=== PATIENT | female | born 1985 | race Caucasian/White ===

== ENCOUNTER → 2019-10-04 16:12 | Outpatient (BNVA) | payer OTHER, SELFPAY | PROVIDERS: Family Provider Nurse Practitioner Family; PCP Family Medicine; Visit Provider Obstetrics & Gynecology | DX: E28.2 Polycystic ovarian syndrome (principal) | CPT/HCPCS: 36415; 82947; 83036; 84146; 84443; 84703; 85027 ==

== ENCOUNTER → 2019-10-13 10:12 | Outpatient (BNVA) | payer OTHER, SELFPAY | PROVIDERS: Family Provider Family Medicine; PCP Family Medicine; Visit Provider Obstetrics & Gynecology | DX: R73.01 Impaired fasting glucose (principal) | CPT/HCPCS: 82951; 88305 ==

== ENCOUNTER → 2019-12-13 08:26 | Outpatient (BNVA) | payer OTHER, SELFPAY | PROVIDERS: Family Provider Family Medicine; PCP Nurse Practitioner; Referring Provider Nurse Practitioner; Visit Provider Nurse Practitioner | DX: R05 Cough (principal); J20.8 Acute bronchitis due to other specified organisms; B96.89 Other specified bacterial agents as the cause of diseases classified elsewhere | CPT/HCPCS: 87400 ==

== ENCOUNTER → 2020-02-09 09:40 | Outpatient (BNVA) | payer OTHER, SELFPAY | PROVIDERS: Family Provider Family Medicine; PCP Nurse Practitioner; Visit Provider Obstetrics & Gynecology | DX: E28.2 Polycystic ovarian syndrome (principal) | CPT/HCPCS: 84144 ==

== ENCOUNTER → 2020-03-25 11:50 | Outpatient (BNVA) | payer OTHER, SELFPAY | PROVIDERS: Family Provider Family Medicine; PCP Nurse Practitioner; Visit Provider Obstetrics & Gynecology | DX: E28.2 Polycystic ovarian syndrome (principal) | CPT/HCPCS: 84144 ==

== ENCOUNTER → 2021-02-20 10:50 | Outpatient (BNVA) | payer SELFPAY | PROVIDERS: Family Provider Family Medicine; PCP Family Medicine; Visit Provider Family Medicine | DX: E11.9 Type 2 diabetes mellitus without complications (principal); E28.2 Polycystic ovarian syndrome; E66.9 Obesity, unspecified | CPT/HCPCS: 80053; 83036; 84443 ==

== ENCOUNTER → 2022-07-22 10:07 | Outpatient (BNVA) | payer BC, MEDICAID, SELFPAY | PROVIDERS: Family Provider Family Medicine; PCP Family Medicine; Visit Provider Family Medicine | DX: O98.519 Other viral diseases complicating pregnancy, unspecified trimester (principal); A60.00 Herpesviral infection of urogenital system, unspecified; O99.891 Other specified diseases and conditions complicating pregnancy; R73.03 Prediabetes; Z3A.00 Weeks of gestation of pregnancy not specified | CPT/HCPCS: 80307; 81000; 81025; 82570; 83036; 84144; 84156; 84443; 84702; 85025; 86592; 86695; 86696; 86762; 86803; 86850; 86900; 87086; 87340; 87491; 87591; 87624; 87806 ==

== ENCOUNTER 2022-08-03 12:39 | Outpatient (CLI) | payer BC, MEDICAID, SELFPAY ==
--- NOTE | 2022-08-03 13:00 | US_ITS ---
WS: [email or web address] OB ultrasound, 08/03/2022 Clinical Data: DATING Comparison: None. Findings: The uterus measures 7.28 x 9.30 cm There is a single interuterine . heart rate is 180 beats per minute. There is a 0.52 cm yolk sac present. The crown-rump length measured 2.2 cm. The estimated gestational age 8w6d is with an CRUZ of approximately 03/09/2023. The cervix measures 3.24 cm US/US OB <= 14 weeks fetus [id number] Impression: 1. Single interuterine . 2. Estimated gestational age of 8w6d with an CRUZ of 03/09/2023. 3. heart rate 180 beats per minute.
== END 2022-08-03 12:40 | disposition home or self-care (01) ==
LOC: RAD 12:43
PROVIDERS: PCP Family Medicine; Visit Provider Family Medicine
DX: Z34.00 Encounter for supervision of normal first pregnancy, unspecified trimester (principal); Z3A.08 8 weeks gestation of pregnancy
CPT/HCPCS: 76801

== ENCOUNTER → 2022-09-29 13:51 | Outpatient (BNVA) | payer BC, MEDICAID, SELFPAY | PROVIDERS: PCP Family Medicine; Visit Provider Family Medicine | DX: Z34.00 Encounter for supervision of normal first pregnancy, unspecified trimester (principal) | CPT/HCPCS: 81511; 84702 ==

== ENCOUNTER 2022-10-20 09:08 | Outpatient (CLI) | payer BC, MEDICAID, SELFPAY ==
--- NOTE | 2022-10-20 09:15 | US_ITS ---
WS: [email or web address] ULTRASOUND OB COMPLETE TECHNIQUE: Complete ultrasound. CLINICAL INFORMATION: Anatomy US - 3 weeks from now COMPARISON: August 03, 2022 FINDINGS: Cervix measures 4.4 cm Single interuterine gestation is identified with vertex presentation. Placenta is anterior. Placenta grade 0. Normal amniotic fluid volume. cardiac activity: 150 BPM. YUMIKO 12.5 cm AGA: 20w6d CRUZ by ultrasound: 03/03/2023 Estimated weight: 374 g BDP: 4.9 cm = 20w6d HC: 18.4 cm = 20w5d AC: 14.8 cm = 20w0d FEMUR LENGTH: 3.6 cm = 21w4d Anatomic survey: Anatomic survey is normal. Normal stomach. Kidneys and bladder are normal. Normal 3 vessel cord. Norm al 3 vessel cord insertion. Normal 4 chamber heart. Normal spine. Intracranial contents are normal. N ormal posterior fossa and cisterna magna. US/US OB >= 14 weeks fetus [id number] IMPRESSION: 1. Single intrauterine with visualized cardiac activity. AGA 20w6d w ith CRUZ 03/03/2023. 2. Placenta is anterior. No evidence of abruption or previa. 3. anatomic survey is normal. 4. Normal amniotic fluid volume.
== END 2022-10-20 09:09 | disposition home or self-care (01) ==
LOC: RAD 09:12
PROVIDERS: PCP Family Medicine; Visit Provider Family Medicine
DX: Z34.00 Encounter for supervision of normal first pregnancy, unspecified trimester (principal)
CPT/HCPCS: 76805

== ENCOUNTER → 2022-11-27 09:39 | Outpatient (BNVA) | payer BC, SELFPAY | PROVIDERS: PCP Family Medicine; Visit Provider Family Medicine | DX: Z34.00 Encounter for supervision of normal first pregnancy, unspecified trimester (principal); R73.03 Prediabetes | CPT/HCPCS: 82951; 82952 ==

== ENCOUNTER 2023-01-01 10:59 | Outpatient (CLI) | payer BC, MEDICAID, SELFPAY ==
--- NOTE | 2023-01-01 11:09 | US_ITS ---
WS: [email or web address] LIMITED OBSTETRICAL ULTRASOUND HISTORY: SUPERVISION OF HIGH RISK /3RD TRIMESTER/DM-GESTATIO COMPARISON: 08/03/2022, 10/20/2022 Presentation: Cephalic. Cervix: Closed and normal length. Placenta: Anterior, no previa or abruption. Grade: 1 HEART: FHR of 141 BPM. measurements: BPD = 7.9 cm = 31w5d; 68th percentile HC = 28.7 cm = 31w4d; 37th percentile AC = 27.6 cm = 31w5d; 75th percentile FL = 6.2 cm = 32w0d; 70th percentile YUMIKO: 11.1 cm EFW: 1833 g; 72nd percentile AGA by ultrasound: 31w5d CRUZ by ultrasound: 02/28/2023 Measurements are internally concordant. Appropriate growth since the first trimester ultrasound. US/US OB limited [id number] IMPRESSION: 1. Single intrauterine gestation of 31 weeks 5 days with EDC of 02/28/2023. Appr opriate growth since the first trimester ultrasound. 2. Estimated weight at the 72nd percentile for age.
== END 2023-01-01 11:00 | disposition home or self-care (01) ==
LOC: RAD 11:03
PROVIDERS: PCP Family Medicine; Visit Provider Family Medicine
DX: O09.93 Supervision of high risk pregnancy, unspecified, third trimester (principal); Z3A.31 31 weeks gestation of pregnancy
CPT/HCPCS: 76815; 85025

== ENCOUNTER 2023-01-13 14:46 | Outpatient (CLI) | payer BC, MEDICAID, SELFPAY ==
--- NOTE | 2023-01-13 15:00 | US_ITS ---
WS: [email or web address] BIOPHYSICAL PROFILE AMNIOTIC FLUID HISTORY: YUMIKO/BPP 32 weeks (currently 28 weeks) COMPARISON: 01/01/2023 position: Vertex. Cardiac activity: 138 bpm. Cervix: Partially obscured by the head deep within the pelvis. No cervical insufficiency is kendall ntified. Placenta: Anterior, no previa or abruption. Placenta grade: 1 Parameters are as follows: Breathin Movement: 2 Tone: 2 Fluid volume: 2 Amniotic Fluid Index: 12.5 cm; single deep vertical pocket 3.4 cm. US/ OB limited [id number] IMPRESSION: 1. Biophysical profile score: 8/8. 2. Normal amniotic fluid.
== END 2023-01-13 14:47 | disposition home or self-care (01) ==
LOC: RAD 14:48
PROVIDERS: PCP Family Medicine; Visit Provider Family Medicine
DX: O09.93 Supervision of high risk pregnancy, unspecified, third trimester (principal); O24.419 Gestational diabetes mellitus in pregnancy, unspecified control; Z3A.28 28 weeks gestation of pregnancy
CPT/HCPCS: 76815

== ENCOUNTER 2023-01-13 15:39 | Outpatient (CLI) | payer BC, MEDICAID, SELFPAY ==
[2023-01-13 15:54] VITALS: BP 129/60; PULSE 90
[2023-01-13 16:09] VITALS: BP 128/60; PULSE 85
[2023-01-13 16:24] VITALS: BP 128/66; PULSE 93
[2023-01-13 16:39] VITALS: BP 127/66; PULSE 89
== END 2023-01-13 16:45 | disposition home or self-care (01) ==
LOC: OPOB 15:40 → OBGYN 15:41
PROVIDERS: PCP Family Medicine; Visit Provider Family Medicine
DX: O24.419 Gestational diabetes mellitus in pregnancy, unspecified control (principal); Z3A.00 Weeks of gestation of pregnancy not specified
CPT/HCPCS: 59025; 99211

== ENCOUNTER 2023-01-19 12:27 | Outpatient (CLI) | payer BC, MEDICAID, SELFPAY ==
--- NOTE | 2023-01-19 12:30 | US_ITS ---
WS: [email or web address] ULTRASOUND OB LIMITED TECHNIQUE: Limited ultrasound examination of the fetus. CLINICAL INFORMATION: YUMIKO/BPP 33 weeks (currently 28 weeks) COMPARISON: January 13, 2023 FINDINGS: Single interuterine gestation. presentation is vertex heart rate 153 BPM. Largest deep vertical pocket 3.4 cm Biophysical profile 8 out of 8. breathin movement: 2 tone: 2 Amniotic fluid: 2 US/US OB limited [id number] IMPRESSION: Normal biophysical profile 8 out of 8
== END 2023-01-19 12:28 | disposition home or self-care (01) ==
PROVIDERS: PCP Family Medicine; Visit Provider Family Medicine
DX: O09.93 Supervision of high risk pregnancy, unspecified, third trimester (principal); O24.419 Gestational diabetes mellitus in pregnancy, unspecified control; Z3A.00 Weeks of gestation of pregnancy not specified
CPT/HCPCS: 76815

== ENCOUNTER 2023-01-19 13:37 | Outpatient (CLI) | payer BC, MEDICAID, SELFPAY ==
[2023-01-19 13:37] VITALS: BMI 46.0
[2023-01-19 13:54] VITALS: TEMP 36.3
[2023-01-19 13:59] VITALS: BP 122/85; PULSE 101
[2023-01-19 14:20] VITALS: BP 123/71; PULSE 94
== END 2023-01-19 14:45 | disposition home or self-care (01) ==
LOC: OPOB 13:42 → OBGYN 13:44
PROVIDERS: PCP Family Medicine; Visit Provider Family Medicine
DX: O24.919 Unspecified diabetes mellitus in pregnancy, unspecified trimester (principal)
CPT/HCPCS: 59025

== ENCOUNTER 2023-01-22 09:01 | Outpatient (CLI) | payer BC, MEDICAID, SELFPAY ==
[2023-01-22 09:01] VITALS: BMI 46.0
[2023-01-22 09:13] VITALS: BP 153/86; PULSE 91
--- NOTE | 2023-01-22 09:27 | US_ITS ---
WS: [email or web address] BIOPHYSICAL PROFILE AMNIOTIC FLUID HISTORY: DECREASED MOVEMENT COMPARISON: 01/19/2023 position: Vertex. Cardiac activity: 157 bpm. Cervix: Obscured by the head. Placenta: Anterior, no previa or abruption. Placenta grade: 1 Parameters are as follows: Breathin Movement: 2 Tone: 2 Fluid volume: 2 Amniotic Fluid Index: 12.4 cm; single deep cortical pocket 4.6 cm. US/US OB BPP wo NST [id number] IMPRESSION: 1. Biophysical profile score: 8/8. 2. Normal amniotic fluid index.
[2023-01-22 09:32] VITALS: BP 127/66; PULSE 89
[2023-01-22 09:52] VITALS: BP 136/74; PULSE 80
[2023-01-22 10:24] VITALS: BP 136/74; PULSE 80; RESP 18
== END 2023-01-22 10:25 | disposition home or self-care (01) ==
LOC: OPOB 09:02 → OBGYN 09:04
PROVIDERS: Absent Provider Family Medicine; Family Provider Family Medicine; PCP Family Medicine; Visit Provider Family Medicine
DX: O36.8190 Decreased fetal movements, unspecified trimester, not applicable or unspecified (principal); Z3A.00 Weeks of gestation of pregnancy not specified
CPT/HCPCS: 59025; 76819; 99211

== ENCOUNTER 2023-01-27 10:30 | Outpatient (CLI) | payer BC, MEDICAID, SELFPAY ==
[2023-01-27 10:30] VITALS: BMI 46.0
[2023-01-27 10:42] VITALS: BP 135/71; PULSE 82
[2023-01-27 11:01] VITALS: BP 132/65; PULSE 85
[2023-01-27 11:14] VITALS: BP 132/65; PULSE 85
== END 2023-01-27 11:15 | disposition home or self-care (01) ==
LOC: OPOB 10:34 → OBGYN 10:40
PROVIDERS: Absent Provider Family Medicine; Family Provider Family Medicine; PCP Family Medicine; Visit Provider Family Medicine
DX: O24.419 Gestational diabetes mellitus in pregnancy, unspecified control (principal); Z3A.00 Weeks of gestation of pregnancy not specified
CPT/HCPCS: 59025; 99211

== ENCOUNTER 2023-02-01 11:02 | Outpatient (CLI) | payer BC, MEDICAID, SELFPAY ==
--- NOTE | 2023-02-01 11:00 | US_ITS ---
WS: [email or web address] ULTRASOUND OB LIMITED TECHNIQUE: Limited ultrasound examination of the fetus. CLINICAL INFORMATION: YUMIKO/BPP 35 weeks (currently 28 weeks) COMPARISON: January 22, 2023 FINDINGS: Single interuterine gestation. presentation is vertex. Placental location is anterior. Placenta grade: 1 heart rate 147 BPM. Normal YUMIKO Biophysical profile 8 out of 8. breathin movement: 2 tone: 2 Amniotic fluid: 2 US/US OB limited [id number] IMPRESSION: 1. Cervix is long and closed measuring 3.1 cm. 2. Anterior placenta. 3. Presentation is vertex. 4. Normal BPP 8 out of 8 5. Normal YUMIKO
== END 2023-02-01 11:03 | disposition home or self-care (01) ==
PROVIDERS: PCP Family Medicine; Visit Provider Family Medicine
DX: O09.93 Supervision of high risk pregnancy, unspecified, third trimester (principal); O24.419 Gestational diabetes mellitus in pregnancy, unspecified control; Z3A.00 Weeks of gestation of pregnancy not specified
CPT/HCPCS: 76815

== ENCOUNTER 2023-02-01 12:09 | Outpatient (CLI) | payer BC, MEDICAID, SELFPAY ==
[2023-02-01] VITALS (7 sets, daily range): BP systolic 127–155; BP diastolic 68–88; PULSE 83–93; BMI 46.0
== END 2023-02-01 13:45 | disposition home or self-care (01) ==
LOC: OPOB 12:10 → OBGYN 12:11
PROVIDERS: PCP Family Medicine; Visit Provider Family Medicine
DX: O24.419 Gestational diabetes mellitus in pregnancy, unspecified control (principal); Z3A.00 Weeks of gestation of pregnancy not specified
CPT/HCPCS: 59025; 99211

== ENCOUNTER 2023-02-03 14:55 | Outpatient (CLI) | payer BC, MEDICAID, SELFPAY ==
[2023-02-03] VITALS (9 sets, daily range): BP systolic 140–186; BP diastolic 73–90; PULSE 87–109; RESP 18; TEMP 36.9; BMI 46.0
[2023-02-03 16:06] LABS: Add Urine Microscopic? NO; Charge for UA Resulting for Rev
[2023-02-03 16:09] LABS: Basophils % 0.2 %; Eosinophils # 0.1 10^3/uL (0.0-0.8); Eosinophils % 0.3 %; Hematocrit 36.3 % (37.0-47.0); Hemoglobin 12.1 g/dL (11.5-15.3); Lymphocytes # 1.9 10^3/uL (0.8-4.8); Mean Corpuscular HGB Conc 33.3 g/dL (30.0-36.0); Mean Corpuscular Hemoglobin 30.6 pg (28.0-34.0); Mean Corpuscular Volume 91.7 fl (81-99); Mean Platelet Volume 10.2 fL (7.4-10.4); Monocytes % 4.9 %; Neutrophils # 16.11 10^3/uL (1.8-7.7); Nucleated Red Blood Cells % 0 %; Platelet Count 353 10^3/cmm (130-400); Red Blood Count 3.96 10^6/uL (4.1-5.3); Red Cell Distribution Width 13.2 % (12.1-15.1); White Blood Count 19.4 10^3/uL (4.0-10.0)
[2023-02-03 16:21] LABS: Bilirubin Urine Neg (Negative); Blood Urine Neg (Negative); Glucose Urine UA 4+ (Normal); Ketones Urine 2+ (Negative); Leukocyte Esterase Urine Negative (Negative); Nitrate Urine Negative (Negative); Protein Urine Neg (Negative); Urine Appearance Clear (CLEAR); Urine Color Yellow (Yellow); Urobilinogen Urine Neg (Negative); pH Urine 5 (5-7)
[2023-02-03 16:49] LABS: Urine Creatinine 199 mg/dL (28-217)
[2023-02-03 16:50] LABS: UPRO/UCREAT Ratio 0.17 mg/mg CR; Urine Protein Random 34 mg/dL
[2023-02-03] MEDS: labetalol 200 mg Tablet 50 MG PO (17:58)
== END 2023-02-03 18:08 | disposition home or self-care (01) ==
LOC: OPOB 14:58 → OBGYN 14:59
PROVIDERS: PCP Family Medicine; Visit Provider Family Medicine
DX: O16.9 Unspecified maternal hypertension, unspecified trimester (principal); O47.9 False labor, unspecified; Z3A.00 Weeks of gestation of pregnancy not specified
CPT/HCPCS: 36415; 59025; 81003; 82570; 84156; 85025; 99211

== ENCOUNTER → 2023-02-04 13:54 | Outpatient (BNVA) | payer BC, MEDICAID, SELFPAY | PROVIDERS: PCP Family Medicine; Visit Provider Family Medicine | DX: Z34.90 Encounter for supervision of normal pregnancy, unspecified, unspecified trimester (principal) | CPT/HCPCS: 87081 ==

== ENCOUNTER 2023-02-05 10:14 | Outpatient (CLI) | payer BC, MEDICAID, SELFPAY ==
[2023-02-03 16:00] VITALS: RESP 18; TEMP 36.9
[2023-02-05] VITALS (9 sets, daily range): BP systolic 123–154; BP diastolic 66–96; PULSE 80–93; RESP 17; BMI 46.0
--- NOTE | 2023-02-05 10:27 | US_ITS ---
WS: [email or web address] BIOPHYSICAL PROFILE AMNIOTIC FLUID HISTORY: GDM COMPARISON: 02/01/2023 position: Vertex. Cardiac activity: 153 bpm. Cervix: Obscured by the head. Placenta: Posterior, no previa or abruption. Placenta grade: 1 Parameters are as follows: Breathin Movement: 2 Tone: 2 Fluid volume: 2 Normal amount of amniotic fluid. Largest pocket 6.1 cm. YUMIKO estimated at approximately 15.6 cm. US/US OB BPP wo NST [id number] IMPRESSION: 1. Biophysical profile score: 8/8. 2. Normal amniotic fluid index.
[2023-02-05 11:10] LABS: Total Volume, Urine 1175 mL
[2023-02-05 11:25] LABS: Urine Total Protein 24.2 mg/dL (0-150)
[2023-02-05 11:33] LABS: Urine Total Protein 24 Hour 284.4 mg/24hr (0-150)
[2023-02-05 12:50] LABS: Alanine Aminotransferase 14 U/L (0-33); Albumin Level 3.9 g/dL (3.5-5.2); Alkaline Phosphatase 91 U/L (35-105); Aspartate Amino Transferase 16 U/L (0-32); Blood Urea Nitrogen 8 mg/dL (6-20); Calcium 8.8 mg/dL (8.5-10.5); Carbon Dioxide 21 mmol/L (22-29); Chloride 105 mmol/L (98-107); Globulin 3.2 g/dL (1.3-4.6); Glomerular Filtration Rate 138.8 mL/min (90-130); Glucose 88 mg/dL (65-115); Osmolality Calculated 286 mOsm/kg (285-295); Sodium 139 mmol/L (136-145); Total Bilirubin 0.2 mg/dL (0.15-1.2); Total Protein 7.1 g/dL (6.6-8.7); Uric Acid 3.3 mg/dL (2.4-5.7)
== END 2023-02-05 12:03 | disposition home or self-care (01) ==
LOC: OPOB 10:23 → OBGYN 10:23
PROVIDERS: PCP Family Medicine; Visit Provider Family Medicine
DX: O24.419 Gestational diabetes mellitus in pregnancy, unspecified control (principal); Z3A.00 Weeks of gestation of pregnancy not specified
CPT/HCPCS: 36415; 59025; 76819; 80053; 84156; 84550; 99211

== ENCOUNTER 2023-02-08 10:50 | Outpatient (CLI) | payer BC, MEDICAID, SELFPAY ==
--- NOTE | 2023-02-08 11:00 | US_ITS ---
WS: [email or web address] BIOPHYSICAL PROFILE AMNIOTIC FLUID HISTORY: YUMIKO/BPP 36 weeks (currently 28 weeks) COMPARISON: 02/05/2023 position: Vertex. Cardiac activity: 150 bpm. Cervix: Completely obscured. Placenta: Anterior Placenta grade: 1 Parameters are as follows: Breathin Movement: 2 Tone: 2 Fluid volume: 2 Amniotic Fluid Index: 4.8 cm; single deep vertical pocket is 4.8 cm. US/US OB BPP wo NST [id number] IMPRESSION: 1. Biophysical profile score: 8/8. 2. Amniotic fluid index at 4.8 cm. This represents a significant decrease in am niotic fluid since the prior study. Prior YUMIKO was 15.6 cm.
== END 2023-02-08 10:51 | disposition home or self-care (01) ==
LOC: RAD 10:54
PROVIDERS: PCP Family Medicine; Visit Provider Family Medicine
DX: O26.893 Other specified pregnancy related conditions, third trimester (principal); Z3A.28 28 weeks gestation of pregnancy
CPT/HCPCS: 76819

== ENCOUNTER 2023-02-08 11:48 | Outpatient (CLI) | payer BC, MEDICAID, SELFPAY ==
[2023-02-08 11:50] VITALS: RESP 18
[2023-02-08 11:56] VITALS: BMI 46.8
[2023-02-08 12:00] VITALS: BP 158/96; PULSE 92
[2023-02-08 12:15] VITALS: BP 142/70; PULSE 91
[2023-02-08 12:22] LABS: Actim Prom Negative
== END 2023-02-08 12:31 | disposition home or self-care (01) ==
LOC: OPOB 11:52 → OBGYN 11:53
PROVIDERS: PCP Family Medicine; Visit Provider Family Medicine
DX: O24.419 Gestational diabetes mellitus in pregnancy, unspecified control (principal); Z3A.00 Weeks of gestation of pregnancy not specified
CPT/HCPCS: 59025; 84112

== ENCOUNTER 2023-02-09 13:22 | Outpatient (CLI) | payer BC, MEDICAID, SELFPAY ==
[2023-02-08 11:50] VITALS: RESP 18
[2023-02-09] VITALS (8 sets, daily range): BP systolic 125–161; BP diastolic 69–89; PULSE 100–107; RESP 18; BMI 46.8
[2023-02-09 14:31] LABS: Actim Prom Negative
== END 2023-02-09 15:29 | disposition home or self-care (01) ==
LOC: OPOB 13:25 → OBGYN 13:25
PROVIDERS: PCP Family Medicine; Visit Provider Family Medicine
DX: O47.9 False labor, unspecified (principal); O26.899 Other specified pregnancy related conditions, unspecified trimester; N89.8 Other specified noninflammatory disorders of vagina; Z3A.00 Weeks of gestation of pregnancy not specified
CPT/HCPCS: 59025; 84112; 99211

== ENCOUNTER 2023-02-10 17:27 | Outpatient (CLI) | payer BC, MEDICAID, SELFPAY ==
[2023-02-10 20:22] LABS: Total Volume, Urine 3300 mL; Urine Total Protein 9.6 mg/dL (0-150); Urine Total Protein 24 Hour 316.8 mg/24hr (0-150)
== END 2023-02-10 17:28 | disposition home or self-care (01) ==
LOC: OPOB 17:28
PROVIDERS: PCP Family Medicine; Visit Provider Family Medicine
DX: Z36.9 Encounter for antenatal screening, unspecified (principal)
CPT/HCPCS: 84156

== ENCOUNTER 2023-02-12 05:05 | Inpatient (IN) | payer BC, MEDICAID, SELFPAY ==
[2023-02-11] VITALS (20 sets, daily range): BP systolic 115–188; BP diastolic 55–97; PULSE 80–100; RESP 18; TEMP 36.7; BMI 46.8
--- NOTE | 2023-02-11 17:39 | USR_ITS ---
PROCEDURE INFORMATION: Exam: US Biophysical Profile Without Non-Stress Test Exam date and time: 02/11/2023 6:03 PM Age: 37 years old Clinical indication: Abnormal findings; Abnormal lab test; Other: Gest diabetic; Third trimester (=28 weeks 0 days); ; Additional info: Bpp with yumiko. S/d ratio. Resistive index. Estimated weight. TECHNIQUE: Imaging protocol: US biophysical profile without non-stress testing. COMPARISON: US OB BPP wo NST [id number] 02/08/2023 11:07 AM FINDINGS: heart rate: 147 bpm Placenta: Anterior placenta. Amniotic fluid index: YUMIKO is 13.2 cm. BIOPHYSICAL PROFILE: breathing movement (BPP): 2 out of 2. body movement (BPP): 2 out of 2. tone (BPP): 2 out of 2. Amniotic fluid (BPP): 2 out of 2. BIOMETRY: Gestational age (AUA): 36 weeks 5 days Estimated due date (AUA): 03/06/2023. Estimated weight: 2985 g, 6 lb 9 oz Head circumference (HC): 32.54 cm, 36 weeks 6 days Biparietal diameter (BPD): 9.02 cm, 36 weeks 4 days Abdominal circumference (AC): 32.63 cm, 36 weeks 4 day Femur length (FL): 7.16 cm, 36 weeks 5 days Estimated weight percentile: 65th percentile US/US OB BPP wo NST [id number] IMPRESSION: Normal biophysical profile score of 8/8.
[2023-02-11 19:15] LABS: Basophils % 0.3 %; Eosinophils # 0.1 10^3/uL (0.0-0.8); Eosinophils % 0.7 %; Hematocrit 38.4 % (37.0-47.0); Hemoglobin 12.5 g/dL (11.5-15.3); Lymphocytes # 2.1 10^3/uL (0.8-4.8); Mean Corpuscular HGB Conc 32.6 g/dL (30.0-36.0); Mean Corpuscular Volume 92.3 fl (81-99); Mean Platelet Volume 10.2 fL (7.4-10.4); Monocytes # 1.2 10^3/uL (0.2-0.9); Monocytes % 7.6 %; Nucleated Red Blood Cells % 0 %; Platelet Count 369 10^3/cmm (130-400); Red Blood Count 4.16 10^6/uL (4.1-5.3); Red Cell Distribution Width 13.2 % (12.1-15.1); White Blood Count 15.2 10^3/uL (4.0-10.0)
[2023-02-11 19:35] LABS: Alanine Aminotransferase 14 U/L (0-33); Albumin Level 3.7 g/dL (3.5-5.2); Alkaline Phosphatase 90 U/L (35-105); Anion Gap 18.8 (5-19); Aspartate Amino Transferase 18 U/L (0-32); Blood Urea Nitrogen 11 mg/dL (6-20); Calcium 9.1 mg/dL (8.5-10.5); Carbon Dioxide 19 mmol/L (22-29); Chloride 102 mmol/L (98-107); Globulin 3.4 g/dL (1.3-4.6); Glomerular Filtration Rate 179.6 mL/min (90-130); Glucose 74 mg/dL (65-115); Osmolality Calculated 280 mOsm/kg (285-295); Potassium 3.8 mmol/L (3.5-5.1); Sodium 136 mmol/L (136-145); Total Bilirubin 0.2 mg/dL (0.15-1.2); Total Protein 7.1 g/dL (6.6-8.7); Uric Acid 3.9 mg/dL (2.4-5.7)
[2023-02-11] MEDS: labetalol 5 mg/mL SDV 20mL 20 MG IVP (19:44)
--- NOTE | 2023-02-11 19:48 | P.HP_ITS ---
Providers/Chief Complaint Primary Care Provider: Idania Venegas MD Chief Complaint: NST, Ultrasound History of Present Illness Clara Martinez is a 37 year old @ 36.4 weeks by LMP c/w 8 wk US. Preg c/b h/o infertility, PCOS on Spironolactone in very early (first 2-3 weeks), Metformin in first 5 weeks, Phentermine exposure in first 2-3 weeks, h/o genital herpes without recent outbreak, h/o prediabetes now with gDM on insulin, obesity and now with preeclampsia with severe blood pressures. The patient has been doing well overall and has had gestational hypertension for the last few weeks. Her repeat 24-hour urine protein came back and showed that it was elevated up to 316. The patient was brought back in for further evaluation and monitoring. Her YUMIKO was 13, biophysical profile was 8 out of 8, but her blood pressures have been in the 160s to 180s systolic. The patient has been having some intermittent headaches with occasional flashes of light with standing and dizziness. She denies any chest pains or shortness of breath. The patient denies any vaginal bleeding, leakage of fluid, chest pains, shor tness of breath, nausea, vomiting, diarrhea, constipation, dysuria, sores in the vaginal area. Medications/Allergies Home Medications Medication Instructions Recorded Confirmed Last Taken Type doxylamine succinate 25 mg tablet See Rx Instructions .Route 08/11/22 02/11/23 02/10/23 22:00 Rx .COMPLEX PRN nausea #30 tabs Brast pump #1 ea 11/27/22 02/03/23 Unknown Rx insulin syringe-needle U-100 1 mL #100 ea 12/09/22 02/03/23 Unknown Rx 31 gauge x 5/16 (BD Insulin Syringe Ultra-Fine) acyclovir 400 mg tablet 400 mg PO TID #90 tabs 01/07/23 02/11/23 02/11/23 07:00 Rx vitamins no.154-ferrous 1 tab PO .qd #100 tabs 01/25/23 02/11/23 02/10/23 22:00 Rx fumarate 27 mg-folic acid 1 mg tablet insulin detemir U-100 100 unit/mL See Rx Instructions SUBCUT BID #10 01/28/23 02/03/23 02/11/23 06:00 Rx subcutaneous solution (Levemir mL U-100 Insulin) labetalol 100 mg tablet 50 mg PO BID #60 tabs 02/04/23 02/11/23 02/11/23 07:00 Rx Allergies Allergy/AdvReac Type Severity Reaction Status Date / Time No Known Allergies Allergy Verified 01/29/23 09:10 PFSH Acute PFSH: Medical History Facial swelling Obesity Polycystic ovarian syndrome Type 2 diabetes mellitus Patient with PCOS. Diagnosed with DM in 09/2019. Surgical History Hx of cholecystectomy (08/21/14) Laparoscopic. Performed by Dr. Emerson at [facility] in [place], [place]. Family History Mother Diabetes Father Stroke Grandmother Thyroid disease maternal Female Reproductive History: : 1 Vitals/I&O/Wt Last Vital Signs Pulse 88 02/11/23 19:41 Resp 18 02/11/23 17:39 BP 178/97 02/11/23 19:41 Weight last 48 hrs Weight 273 lb Physical Exam Narrative: General: Alert and oriented x3 Eyes: Pupils equal round and reactive to light and accommodation Mouth: Mucous membranes moist, pharynx non-erythematous Cardiac: Regular rate and rhythm without murmurs Lungs: Clear to auscultation bilaterally without wheezes, crackles or rhonchi Abdomen: Soft, non-tender, fundus consistent with gestational age : Extremities: +1 pitting edema in the bilateral lower extremities. Reflexes are normal in the bilateral lower extremities. Data 02/11/23 18:50 02/11/23 18:50 A&P Assessment and plan (1) Preeclampsia, severe: Due to severe preeclampsia, we will induce the patient. We will start her on the antihypertensive protocol. We will start her on IV Pitocin's as her cervica l check is 3 cm dilated with a Molina score of 8. The patient will need to be started on IV magnesium when she is in active labor. The patient has a history of genital herpes 17 years ago. Exam does not show any signs of a flareup and she has no symptoms of a flareup either. The patient is in agreement with the current plan of care. (2) Gestational diabetes: We will follow the patient's blood sugars closely and treat as needed. Her current blood sugar is in the 80s. (3) Supervision of high risk , unspecified, third trimester: Attestations Medical Necessity Statement*: The patient will be here for greater than 2 midnights due to routine intrapartum and management of labor delivery with preeclampsia and gestational diabetes. Coding Level of Care Code Acute Code for [facility] Diagnoses Preeclampsia, severe O14.10 Gestational diabetes O24.419 Supervision of high risk , unspecified, third trimester O09.93
[2023-02-11 20:04] LABS: Glucose Point of Care 86 mg/dL (70-110)
[2023-02-11] MEDS: labetalol 200 mg Tablet 100 MG PO (20:45)
[2023-02-11] MEDS: calcium carbonate 500 mg Chew Tablet 1000 MG PO (20:53)
[2023-02-11] MEDS: dextrose 5%-lactated ringers 1,000 ML 125 ML IV (23:32)
[2023-02-11] MEDS: insulin lispro 100 unit/1 mL SUBCUT (23:49)
[2023-02-12] VITALS (158 sets, daily range): BP systolic 90–199; BP diastolic 56–110; PULSE 74–180; RESP 18; TEMP 36.5–37.1; O2SAT 81–100
[2023-02-12 00:34] LABS: Glucose Point of Care 154 mg/dL (70-110)
[2023-02-12] MEDS: alum-mag-hydroxide-sime 30 mL UDC PO ×3 (00:44→16:35)
[2023-02-12 03:27] LABS: Glucose Point of Care 110 mg/dL (70-110)
[2023-02-12] MEDS: acetaminophen 325 mg Tablet 650 MG PO ×2 (04:45→12:34)
--- NOTE | 2023-02-12 07:00 | P.PN_ITS ---
Subjective Subjective: The patient is doing well today. She has not made significant change overnight, however head is better applied and effacement has improved. She was started on IV Pitocin overnight and is currently on 20 units. The patient is noting increased pain with contractions. Her blood pressures were elevated initially, however have been in the more normal range recently. Vitals/I&O/Wt Last Vital Signs Temp 98.0 F 02/12/23 05:54 Pulse 81 02/12/23 06:39 Resp 18 02/11/23 17:39 BP 116/62 02/12/23 06:39 O2 Del Method Room Air 02/11/23 20:35 02/11/23 02/12/23 02/12/23 22:59 06:59 14:59 Intake Total 31.667 / 31.667 Balance 31.667 / 31.667 Weight last 48 hrs Weight 273 lb Physical Exam Narrative: General: Alert and oriented x3 Cardiac: Regular rate and rhythm without murmurs Lungs: Clear to auscultation bilaterally without wheezes, crackles or rhonchi Abdomen: Soft, non-tender, fundus consistent with gestational age Extremities: +1 pitting edema in the bilateral lower extremities. Reflexes are normal in the bilateral lower extremities. Data 02/11/23 18:50 02/11/23 18:50 A&P Assessment and plan (1) Preeclampsia, severe: The patient is having increased contractions so we will go ahead and plan to start IV magnesium. The patient was not making significant change, so AROM was performed and clear fluid was noted. Currently heart tones are category 1. Contractions are every 3 to 4 minutes. We will continue to treat blood pressures as needed. We will continue to follow blood sugars and treat as neede d. All questions were answered. (2) Supervision of high risk , unspecified, third trimester: (3) Gestational diabetes: Attestations Medical Necessity Statement*: The patient will be here for greater than 2 midnights due to routine intrapartum and management of labor and delivery with complications listed above. Coding Level of Care Code Acute Code for [facility] Diagnoses Preeclampsia, severe O14.10 Supervision of high risk , unspecified, third trimester O09.93 Gestational diabetes O24.419
[2023-02-12] MEDS: dextrose 5%-lactated ringers 1,000 ML 125 ML IV ×2 (07:15→19:20)
[2023-02-12] MEDS: insulin lispro 100 unit/1 mL SUBCUT ×4 (07:40→22:57)
[2023-02-12 07:52] LABS: Glucose Point of Care 134 mg/dL (70-110)
[2023-02-12] MEDS: lactated ringers 1,000 ML 999 ML IV (08:38)
[2023-02-12] MEDS: lactated ringers 1,000 ML 500 ML IV (09:41)
--- NOTE | 2023-02-12 09:56 | ANES.PREANE2 ---
Pre-Anesthetic Assessment Height/Weight: Height 1.63 m Weight 123.831 kg Temp Pulse Resp BP Pulse Ox O2 Del Method 98.0 F 91 18 171/89 99 Room Air 02/12/23 05:54 02/12/23 09:53 02/11/23 17:39 02/12/23 09:53 02/12/23 09:52 02/11/23 20:35 Epidural Familial anesthetic complications: None Social No alcohol and No tobacco Airway Mallampati: Class III Dentition: full CV/HEM preeclampsia Metabolic Diabetes Mellitus and Morbid Obesity Anesthetic Plan ASA status: 3 Anesthesia: Regional (specify below) Risk of > 500 ml blood loss (7ml/kg in children): Yes, adequate IV access and fluids planned Medications/Allergies Home Medications Medication Instructions Recorded Confirmed Last Taken Type doxylamine succinate 25 mg tablet See Rx Instructions .Route 08/11/22 02/11/23 02/10/23 22:00 Rx .COMPLEX PRN nausea #30 tabs Brast pump #1 ea 11/27/22 02/03/23 Unknown Rx insulin syringe-needle U-100 1 mL #100 ea 12/09/22 02/03/23 Unknown Rx 31 gauge x 5/16 (BD Insulin Syringe Ultra-Fine) acyclovir 400 mg tablet 400 mg PO TID #90 tabs 01/07/23 02/11/23 02/11/23 07:00 Rx vitamins no.154-ferrous 1 tab PO .qd #100 tabs 01/25/23 02/11/23 02/10/23 22:00 Rx fumarate 27 mg-folic acid 1 mg tablet insulin detemir U-100 100 unit/mL See Rx Instructions SUBCUT BID #10 01/28/23 02/03/23 02/11/23 06:00 Rx subcutaneous solution (Levemir mL U-100 Insulin) labetalol 100 mg tablet 50 mg PO BID #60 tabs 02/04/23 02/11/23 02/11/23 07:00 Rx Allergies Allergy/AdvReac Type Severity Reaction Status Date / Time No Known Allergies Allergy Verified 01/29/23 09:10 Current Medications Generic Name Dose Route Start Last Admin Trade Name Freq PRN Reason Stop Dose Admin Acetaminophen 650 mg 02/11/23 20:40 02/12/23 04:45 Acetaminophen 325 Mg Tablet PO 650 mg Q6H PRN Administration Mild pain or temp > 100.4 Al Hydrox/Mg Hydrox/Simethicone 30 ml 02/11/23 20:40 02/12/23 07:14 Tndd-Shx-Lcythqnnk-Carol 30 Ml Udc PO 30 ml Q4H PRN Administration INDIGESTION Calcium Carbonate 1,000 mg 02/11/23 20:44 02/11/23 20:53 Calcium Carbonate 500 Mg Chew Tablet PO 1,000 mg Q4H PRN Administration HEARTBURN Dextrose/Lactated Ringer's 1,000 mls @ 125 mls/hr 02/11/23 20:45 02/12/23 08:39 Dextrose 5%-Lactated Ringers IV 0 mls/hr .Q8H TITO Infusion Lactated Ringer's 1,000 mls @ 999 mls/hr 02/11/23 20:40 02/12/23 09:41 Lactated Ringers IV 500 mls/hr .Q1H1M PRN Administration Per L&D Rescitation Protocol Oxytocin 30 unit/ Sodium 503 mls @ 4.024 mls/hr 02/11/23 23:15 02/12/23 02:25 Chloride IV 19.88 milliunit/min .Q24H TITO 20 mls/hr Titration Protocol 4 MILLIUNIT/MIN Lactated Ringer's 1,000 mls @ 999 mls/hr 02/12/23 08:27 02/12/23 09:43 Lactated Ringers IV Infused .Q1H1M PRN Infusion See label comments Ropivacaine 200 mg in 100 mls @ 13 mls/hr 02/12/23 08:30 02/12/23 09:48 Naropin Premix EPIDURAL 13 mls/hr .Q7H42M TITO Administration Insulin Human Lispro 0 unit 02/11/23 20:00 02/12/23 07:40 Insulin Lispro 100 Unit/1 Ml SUBCUT 2 unit Q4H.RESPIRATORY TITO Administration Protocol Labetalol HCl 20 mg 02/11/23 18:33 02/11/23 19:44 Labetalol 5 Mg/Ml Sdv 20ml IVP 20 mg PRN PRN Administration HYPERTENSION Protocol [facility] Anesthesia Medical History Facial swelling Obesity Polycystic ovarian syndrome Type 2 diabetes mellitus Patient with PCOS. Diagnosed with DM in 09/2019. Surgical History Hx of cholecystectomy (08/21/14) Laparoscopic. Performed by Dr. Emerson at [facility] in [place], [place]. Family History Mother Diabetes Father Stroke Grandmother Thyroid disease maternal Female Reproductive History : 1 Data Anesthesia 02/11/23 18:50 02/11/23 18:50 Short CBC 02/11/23 Range/Units 18:50 WBC 15.2 H (4.0-10.0) 10^3/uL Hgb 12.5 (11.5-15.3) g/dL Hct 38.4 (37.0-47.0) % MCV 92.3 (81-99) fl Plt Count 369 (130-400) 10^3/cmm Neut % (Auto) 75.0 % Neut # (Auto) 11.40 H (1.8-7.7) 10^3/uL BMP 02/11/23 18:50 Sodium 136 Potassium 3.8 Chloride 102 Carbon Dioxide 19 L BUN 11 Creatinine 0.4 L Glucose 74 Calcium 9.1 Liver Function 02/11/23 Range/Units 18:50 Total Bilirubin 0.2 (0.15-1.2) mg/dL AST 18 (0-32) U/L ALT 14 (0-33) U/L Alkaline Phosphatase 90 (35-105) U/L Albumin 3.7 (3.5-5.2) g/dL Blood Bank 02/11/23 18:50 Blood Type A Positive Rho(D) Type Positive Antibody Screen Negative Cardiac Studies: No Data to Display
--- NOTE | 2023-02-12 09:57 | ANES.PROC ---
Anesthesia Procedures Procedure/Date: 02/12/23 Epidural: Time Out Performed: Yes Consents Signed: Procedure Consent and NPO Consent Consent: requested by attending/covering physician, from patient, from other, risks and benefits reviewed, patient agrees to proceed and emergency procedure Lumbar Level: L3-L4 Epidural position: sitting Epidural procedure: sterile prep of area, 1% lidocaine to numb the area, 18 g needle, negative for paresthesia passed, neg for paresthesia, test dose given, 1.5% xylocaine 1:200k epi (5 cc), 0.2% Ropivacaine bolus ml (5), placed PCEA, no systemic response, sterile dressing applied, L.U.D. no apparent complications and 0.2% Ropiavacaine @ mls/hr (13) Additional Comments: NONA at 6 cm, threaded to just below 12 cm. Patient reported decreased pain of contractions. Shortly after leaving bedside, was called back due to patient experiencing subjective shortness of breath. Upon arrival, patient stated her shortness of breath had resolved after nursing staff moved her to a sitting position. Pump was paused. She described feeling like she had proper chest wall mechanics and stated the shortness of breath felt more like an inability to pull air through the throat. Examined for Hypotension and Rash in case of allergic reaction. No other s/s of allergy detected. She also stated she felt jittery during the episode and had some tingling in her tongue. Both of which resolved before my arrival back when the pump was still infusing. Tested patient's epidural level and she is has sensation to cold intact UNDER the T4 level. Pump paused for 15 minutes and if patient remains asymptomatic may restart pump without bolus and watch for re-emergence of any similar symptoms. Bolus can be resumed if patient remains asympomatic after at least a 20 minute interval of restarting pump if she requires additional pain control.
[2023-02-12] MEDS: magnesium sulfate premix 20 GM/500 ML BAG IV ×2 (10:15→19:21)
[2023-02-12] MEDS: magnesium sulfate premix 4 GM/100 ML PREMIX IV (10:16)
[2023-02-12 11:28] LABS: Glucose Point of Care 110 mg/dL (70-110)
[2023-02-12 13:48] LABS: Glucose Point of Care 128 mg/dL (70-110)
[2023-02-12 15:55] LABS: Glucose Point of Care 123 mg/dL (70-110)
[2023-02-12 17:44] LABS: Glucose Point of Care 108 mg/dL (70-110)
[2023-02-12 17:52] LABS: Magnesium Level (OB Only) 4.2 mg/dL (5.0-7.5)
[2023-02-12] MEDS: ondansetron 2 mg/ML SDV 2 mL 4 MG IVP (17:54)
--- NOTE | 2023-02-12 18:02 | PC.NURSE ---
magnesium level of 4.[address] Welch, no intervention needed. Order to not call with critical level unless below 3.0
[2023-02-12 19:54] LABS: Glucose Point of Care 114 mg/dL (70-110)
[2023-02-12 22:49] LABS: Glucose Point of Care 141 mg/dL (70-110)
[2023-02-12 23:26] LABS: Magnesium Level (OB Only) 4.3 mg/dL (5.0-7.5)
[2023-02-13] VITALS (54 sets, daily range): BP systolic 119–164; BP diastolic 60–98; PULSE 73–144; RESP 18; TEMP 35.8–37.6; O2SAT 88–100
[2023-02-13] MEDS: insulin lispro 100 unit/1 mL SUBCUT (00:52)
[2023-02-13 01:02] LABS: Glucose Point of Care 133 mg/dL (70-110)
[2023-02-13] MEDS: lidocaine 2% INJ 20 mL INJECTION (03:30)
--- NOTE | 2023-02-13 04:09 | PM.DELIVERY ---
Delivery Note: Date of delivery: February 13, 2023 Pre-delivery diagnoses: 1. Intrauterine at 36.6 weeks gestation 2. History of infertility 3. PCOS 4. Metformin and phentermine exposure in first few weeks of 5. Distant history of genital herpes without recent outbreak 6. Gestational diabetes on insulin 7. Obesity 8. Preeclampsia with severe features Post-delivery diagnoses: 1. Intrauterine status post spontaneous vaginal delivery at 36.6 weeks gestation 2. History of infertility 3. PCOS 4. Metformin and phentermine exposure in first few weeks of 5. Distant history of genital herpes without recent outbreak 6. Gestational diabetes on insulin 7. Obesity 8. Preeclampsia with severe features 9. Delivery of healthy infant male weighing 7 pounds 1 ounce with Apgars of 6 and 8 Procedure: Spontaneous vaginal delivery Delivering Physician: Chaitanya Welch MD Estimated blood loss (mL): 150 Findings: 1. Healthy male weighing 7 pounds 1 ounce with Apgars of 6 and 8 2. Intact placenta with central umbilical cord insertion site Pre-Delivery Course: Clara Martinez is a 37 year old G1 now P1 status post spontaneous vaginal delivery @ 36.6 weeks by LMP c/w 8 wk US. Preg c/b h/o infertility, PCOS on Spironolactone in very early (first 2-3 weeks), Metformin in first 5 weeks, Phentermine exposure in first 2-3 weeks, h/o genital herpes without recent outbreak, h/o prediabetes now with gDM on insulin (Levemir 30 units BID), obesity and now with preeclampsia with severe blood pressures. The patient was being followed closely with testing and her blood pressures began to gradually rise. By 02/11/2023, her blood pressures were in the 160-180 systolic range consistently in OB triage. The patient denied chest pains, shortness of breath and severe headache, however did have symptoms of generalized headache, mild nausea and dizziness with flashes of light intermittently. Because of her severe range blood pressures and associated symptoms, it was felt best to proceed with induction of labor due to preeclampsia with severe features. Her 24-hour urine protein was 316 on 02/10/2023. Her glucose on admission was 86. She was 3 cm dilated with a Molina score of 8 upon admission. An exam was done prior to induction and no sores were noted in the vaginal area. The patient denies any active genital lesions or pain. The patient was started on IV Pitocin and made initial slow change. By the morning of 02/12/2023, she was still 3 cm, however the head was well applied so AROM was performed by myself at 6:49 AM. Clear fluid was noted. The patient began to have increased pain at that time so a labor epidural was given. The patient had an episode of late decelerations and the IV Pitocin was stopped. The IV Pitocin was gradually restarted again after the heart tones recovered. From that point the patient made slow but gradual change. she labored through the evening and was complete by 2:40 AM on 02/13/2023. The patient did need a few doses of IV labetalol initially, however with decrease stimulation her blood pressures did respond well overall and did not need further doses. Delivery: The patient began pushing at 2:45 AM on 02/13/2023. The patient pushed well and the delivered at 3:16 AM on 02/13/2023. The delivered in the OA position. The left shoulder was anterior shoulder and it delivered with gentle downward pressure. The rest of the delivered with ease. The was crying immediately upon delivery. The 's mouth and nose were bulb suctioned by myself and the infant was placed on the mother's chest where the nurses were waiting to care for him. The 's cord was clamped by myself and cut by the 's father after approximately 1 minute. Cord blood was obtained. The cord was then drained of blood and traction was placed on the umbilical cord. Uterine massage was carried out and the placenta delivered at 3:21 AM on 02/13/2023. The placenta was noted to be intact with a central umbilical cord insertion site. The cervix was inspected and no lacerations were noted. The vaginal wall was inspected and 2 small second-degree lacerations were noted. One was in the right periurethral region and the other was midline in the lower vaginal wall. Multiple bleeding, so needed repair. 1% lidocaine was placed locally for anesthesia. 3-0 Vicryl was used to repair the lacerations in a running fashion. The patient tolerated this well. Currently the mother is doing well. The has had some grunting, otherwise is doing well. History History History 1 Term 0 1 Miscarriages/Ectopic 0 Living Children 1 Past Pregnancies Del. Date GA/Weeks Outcome Route Wt Inf Gender Labor Lgth Comp. Anesthesia Location 02/13/23 36 live - Vaginal 7 lb 1 oz Male [address] [facility] Delivery Date: 02/13/23 Last Updated by: Chaitanya Welch MD Born at 36.6 weeks gestation due to preeclampsia with severe features, gestational diabetes on insulin Coding Level of Care Code Acute Code for Chg Fwd Diagnoses
[2023-02-13] MEDS: dextrose 5%-lactated ringers 1,000 ML 125 ML IV ×3 (04:10→19:58)
[2023-02-13] MEDS: magnesium sulfate premix 20 GM/500 ML BAG IV ×2 (06:49→16:34)
[2023-02-13 07:24] LABS: Magnesium Level (OB Only) 4.7 mg/dL (5.0-7.5)
[2023-02-13] MEDS: ibuprofen 800 mg tablet PO (10:57)
[2023-02-13] MEDS: prenatal vitamin Capsule 1 CAP PO (10:57)
[2023-02-13] MEDS: docusate sodium 100 mg Capsule PO ×2 (10:57→17:14)
[2023-02-13 14:51] LABS: Hematocrit 29.6 % (37.0-47.0); Hemoglobin 9.6 g/dL (11.5-15.3); Mean Corpuscular HGB Conc 32.4 g/dL (30.0-36.0); Mean Corpuscular Hemoglobin 30.4 pg (28.0-34.0); Mean Corpuscular Volume 93.7 fl (81-99); Mean Platelet Volume 9.9 fL (7.4-10.4); Platelet Count 296 10^3/cmm (130-400); Red Blood Count 3.16 10^6/uL (4.1-5.3); Red Cell Distribution Width 13.3 % (12.1-15.1); White Blood Count 23.2 10^3/uL (4.0-10.0)
[2023-02-13 15:11] LABS: Magnesium Level (OB Only) 4.5 mg/dL (5.0-7.5)
[2023-02-13] MEDS: lanolin oint 7 gm 1 APPLIC TOPICAL (17:14)
[2023-02-13] MEDS: benzocaine-menthol 78 gm Canister 1 SPRAY TOPICAL (17:15)
[2023-02-13 23:02] LABS: Magnesium Level (OB Only) 4.5 mg/dL (5.0-7.5)
[2023-02-14] VITALS (31 sets, daily range): BP systolic 116–195; BP diastolic 56–94; PULSE 63–105; RESP 16–18; O2SAT 97–100
[2023-02-14] MEDS: ibuprofen 800 mg tablet PO (03:30)
[2023-02-14] MEDS: prenatal vitamin Capsule 1 CAP PO (08:56)
[2023-02-14] MEDS: docusate sodium 100 mg Capsule PO (08:57)
--- NOTE | 2023-02-14 09:43 | ANE.PACU2 ---
Inpatient post-anesthesia follow up: Airway intact: Yes Vital signs: Temperature 96.4 F Pulse Rate 84 Respiratory Rate 18 Blood Pressure 133/68 Pulse Oximetry 98 Oxygen Delivery Me thod Room Air Oxygen Flow Rate Fraction of Inspir ed Oxygen Hydration adequate: Yes Nausea and vomiting: No Pain level: 1 Mental status: Baseline
[2023-02-14] MEDS: labetalol 5 mg/mL SDV 20mL 20 MG IVP (17:05)
[2023-02-14] MEDS: labetalol 200 mg Tablet 50 MG PO (19:47)
--- NOTE | 2023-02-14 20:05 | PC.NURSE ---
Physician at bedside
--- NOTE | 2023-02-14 21:17 | PM.PN ---
Subjective Subjective: The patient is doing well overall at this time. Her blood pressures have been decreasing well and her urine output has been 100 to 300 mL/h. IV magnesium was stopped 24 hours. The patient did have an episode of elevated blood pressure earlier today that was treated with IV labetalol. She responded well to this. She was started on labetalol 50 mg twice a day. The patient's bleeding has decreased well. She is ambulating, voiding, passing gas and tolerating food by mouth. She is not having any signs of complications related to preeclampsia otherwise. Vitals/I&O/Wt Last Vital Signs Temp 96.4 F L 02/13/23 19:21 Pulse 71 02/14/23 19:53 Resp 16 02/14/23 14:00 BP 157/73 02/14/23 19:53 Pulse Ox 98 02/14/23 18:19 O2 Del Method Room Air 02/13/23 08:30 02/14/23 02/14/23 02/14/23 06:59 14:59 22:59 Output Total 1800 / 5975 200 / 200 Balance -1800 / -3522.917 -200 / -200 Physical Exam Narrative: General: Alert and oriented x3 Cardiac: Regular rate and rhythm without murmurs Lungs: Clear to auscultation bilaterally without wheezes, crackles or rhonchi Abdomen: Soft, mild tenderness over uterus. The uterus is firm and 2 cm below the umbilicus. Extremities: Trace edema in the bilateral lower extremities. Deep tendon reflexes are normal. Urinary Catheter Management: Farah Latex: Cath Placed During This Visit: yes, but has since been removed by the nurse Reason for Continuing Indwelling Catheter: Perioperative Use in Selected Surgeries Urinary Catheter Date of Insertion: 02/12/23 Urinary Catheter Time of Insertion: 10:20 Date Urinary Catheter Removed: 02/13/23 Time Urinary Catheter Discontinued: 02:45 Latex Free: Cath Placed During This Visit: yes, but has since been removed by the nurse Reason for Continuing Indwelling Catheter: Decision to DC Catheter Urinary Catheter Date of Insertion: 02/13/23 Urinary Catheter Time of Insertion: 04:00 Date Urinary Catheter Removed: 02/14/23 Time Urinary Catheter Discontinued: 05:00 Data 02/13/23 14:40 02/11/23 18:50 A&P Assessment and plan (1) Preeclampsia, severe: The patient's blood pressures are improving. Her spike did happen when she had visitors in. I advised her to try and keep overall activity levels down to help with her blood pressure. We discussed the timeframe for improvement from preeclampsia. I will keep her on 50 mg twice a day of labetalol for now and we will increase this if needed. The patient is showing no other signs of complications at this point. If she does well, we may consider discharge home tomorrow afternoon, versus Wednesday morning. We will follow-up based on her course. (2) Supervision of high risk , unspecified, third trimester: (3) Gestational diabetes: Attestations Medical Necessity Statement*: The patient continues to need inpatient care as she recovers from her spontaneous vaginal delivery and above complications. Coding Level of Care Code Acute Code for Chg Fwd Diagnoses Preeclampsia, severe O14.10 Supervision of high risk , unspecified, third trimester O09.93 Gestational diabetes O24.419
[2023-02-14] MEDS: acetaminophen 325 mg Tablet 650 MG PO (22:44)
[2023-02-15] VITALS (7 sets, daily range): BP systolic 108–151; BP diastolic 58–74; PULSE 71–78; RESP 16–18; TEMP 36.6; O2SAT 98
[2023-02-15] MEDS: acetaminophen 325 mg Tablet 650 MG PO (08:46)
[2023-02-15] MEDS: labetalol 200 mg Tablet 50 MG PO ×2 (08:47→20:39)
[2023-02-15] MEDS: prenatal vitamin Capsule 1 CAP PO (08:47)
[2023-02-15] MEDS: ibuprofen 800 mg tablet PO ×3 (08:47→20:22)
[2023-02-15] MEDS: docusate sodium 100 mg Capsule PO ×2 (08:47→20:23)
[2023-02-15] MEDS: HYDROcodone-acetaminophen 5-325 mg Tablet PO ×2 (08:47→22:46)
--- NOTE | 2023-02-15 10:34 | PM.PN ---
Subjective Subjective: The patient is doing well today. She is currently ambulating, voiding and tolerating food by mouth. She has had increased pain today and needed hydrocodone. Vitals/I&O/Wt Last Vital Signs Temp 96.4 F L 02/13/23 19:21 Pulse 74 02/15/23 05:05 Resp 16 02/14/23 14:00 BP 146/68 02/15/23 05:05 Pulse Ox 98 02/14/23 18:19 O2 Del Method Room Air 02/13/23 08:30 Physical Exam Narrative: General: Alert and oriented x3 Cardiac: Regular rate and rhythm without murmurs Lungs: Clear to auscultation bilaterally without wheezes, crackles or rhonchi Abdomen: Soft, mild tenderness over uterus. The uterus is firm and 2 cm below the umbilicus. Extremities: +1 pitting edema in the bilateral lower extremities. Deep tendon reflexes are normal. Urinary Catheter Management: Farah Latex: Cath Placed During This Visit: yes, but has since been removed by the nurse Reason for Continuing Indwelling Catheter: Perioperative Use in Selected Surgeries Urinary Catheter Date of Insertion: 02/12/23 Urinary Catheter Time of Insertion: 10:20 Date Urinary Catheter Removed: 02/13/23 Time Urinary Catheter Discontinued: 02:45 Latex Free: Cath Placed During This Visit: yes, but has since been removed by the nurse Reason for Continuing Indwelling Catheter: Decision to DC Catheter Urinary Catheter Date of Insertion: 02/13/23 Urinary Catheter Time of Insertion: 04:00 Date Urinary Catheter Removed: 02/14/23 Time Urinary Catheter Discontinued: 05:00 Data 02/13/23 14:40 02/11/23 18:50 A&P Assessment and plan (1) Preeclampsia, severe: The patient is continuing to have some intermittent elevated blood pressures. We will monitor these throughout the day and continue with labetalol 50 mg twice a day. We will increase dosing if needed. If she is showing signs improvement, we may consider discharge home tomorrow. (2) Supervision of high risk , unspecified, third trimester: Overall her pain has increased some and we will follow this to be sure that it is related to normal issues. Continue with routine care otherwise. (3) Gestational diabetes: Attestations Medical Necessity Statement*: The patient continues need inpatient care as she is followed for 72 hours after having severe preeclampsia. Her stable cross 2 midnights. Coding Level of Care Code Acute Code for Chg Fwd Diagnoses Preeclampsia, severe O14.10 Supervision of high risk , unspecified, third trimester O09.93 Gestational diabetes O24.419
[2023-02-16] VITALS (8 sets, daily range): BP systolic 120–197; BP diastolic 58–93; PULSE 77–94; RESP 16–18; TEMP 36.1–36.8; O2SAT 96
[2023-02-16] MEDS: HYDROcodone-acetaminophen 5-325 mg Tablet PO (06:45)
[2023-02-16] MEDS: labetalol 200 mg Tablet 50 MG PO (09:15)
[2023-02-16] MEDS: ibuprofen 800 mg tablet PO (09:15)
[2023-02-16] MEDS: docusate sodium 100 mg Capsule PO (09:15)
[2023-02-16] MEDS: prenatal vitamin Capsule 1 CAP PO (09:15)
--- NOTE | 2023-02-16 09:57 | P.DS_ITS ---
Discharge Providers Date of Admission: 02/12/23 05:05 Date of Discharge: February 16, 2023 Attending Provider at Admission: Chatianya Welch MD Attending Provider at Discharge: Chaitanya Welch MD Primary Care Provider: Idania Venegas MD Diagnoses at Discharge Discharge Diagnosis (1) Preeclampsia, severe: Status: Inactive (2) Supervision of high risk , unspecified, third trimester: Status: Resolved (3) Gestational diabetes: Status: Inactive Other Information Additional DC diagnoses/information: 1.? Intrauterine status post spontaneous vaginal delivery at 36.6 weeks gestation 2.? History of infertility 3.? PCOS 4.? Metformin and phentermine exposure in first few weeks of 5.? Distant history of genital herpes without recent outbreak 6.? Gestational diabetes on insulin 7.? Obesity 8.? Preeclampsia with severe features 9.? Delivery of healthy male weighing 7 pounds 1 ounce with Apgars of 6 and 8 Reason for Visit Reason for Visit: NST, Ultrasound Brief History: Clara Martinez is a 37 year old G1 now P1 status post spontaneous vaginal delivery @ 36.6 weeks by LMP c/w 8 wk US. Preg c/b h/o infertility, PCOS on Spironolactone in very early (first 2-3 weeks), Metformin in first 5 weeks, Phentermine exposure in first 2-3 weeks, h/o genital herpes without recent outbreak, h/o prediabetes now with gDM on insulin (Levemir 30 units BID), obesity and now with preeclampsia with severe blood pressures. The patient was being followed closely with testing and her blood pressures began to gradually rise.? By 02/11/2023, her blood pressures were in the 160-180 systolic range consistently in OB triage.? The patient denied chest pains, shortness of breath and severe headache, however did have symptoms of generalized headache, mild nausea and dizziness with flashes of light intermittently.? Because of her severe range blood pressures and associated symptoms, it was felt best to proceed with induction of labor due to preeclampsia with severe features.? Her 24-hour urine protein was 316 on 02/10/2023.? Her glucose on admission was 86.? She was 3 cm dilated with a Molina score of 8 upon admission.? Hospital Course Hospital Course The patient was started on IV Pitocin and made initial slow change.? By the morning of 02/12/2023, she was still 3 cm, however the head was well applied so AROM was performed by myself at 6:49 AM.? Clear fluid was noted.? The patient began to have increased pain at that time so a labor epidural was given.? The patient had an episode of late decelerations and the IV Pitocin was stopped.? The IV Pitocin was gradually restarted again after the heart tones recovered.? From that point the patient made slow but gradual change.? she labored through the evening and was complete by 2:40 AM on 02/13/2023.? The patient did need a few doses of IV labetalol initially, however with decrease stimulation her blood pressures did respond well overall and did not need further doses. The patient began pushing at 2:45 AM on 02/13/2023.? The patient pushed well and the delivered at 3:16 AM on 02/13/2023.? The infant delivered in the OA position.? The left shoulder was anterior shoulder and it delivered with gentle downward pressure.? The rest of the infant delivered with ease.? The infant was crying immediately upon delivery.? The infant's mouth and nose were bulb suctioned by myself and the was placed on the mother's chest where the nurses were waiting to care for him.? The infant's cord was clamped by myself and cut by the infant's father after approximately 1 minute.? Cord blood was obtained.? The cord was then drained of blood and traction was placed on the umbilical cord.? Uterine massage was carried out and the placenta delivered at 3:21 AM on 02/13/2023.? The placenta was noted to be intact with a central umbilical cord insertion site.? The cervix was inspected and no lacerations were noted.? The vaginal wall was inspected and 2 small second-degree lacerations were noted.? One was in the right periurethral region and the other was midline in the lower vaginal wall.? This was bleeding, so it needed to be repaired.? 1% lidocaine was placed locally for anesthesia.? 3-0 Vicryl was used to repair the lacerations in a running fashion.? The patient tolerated this well.? , the patient has done well and her blood pressure is improving well. She was on IV magnesium for 24 hours . She is showing no signs of further complications. She will be discharged home. Discharge instructions were discussed in detail. Precautions were discussed as well. The patient is currently ambulating, voiding, passing gas and tolerating food by mouth. She will follow-up with me in clinic to be sure that she is not having further complications. The patient is in agreement with current plan of care. Physical Exam Narrative: General: Alert and oriented x3 Cardiac: Regular rate and rhythm without murmurs Lungs: Clear to auscultation bilaterally without wheezes, crackles or rhonchi Abdomen: Soft, mild tenderness over uterus. The uterus is firm and 2 cm below the umbilicus. Extremities: +1 pitting edema in the bilateral lower extremities. Deep tendon reflexes are normal. Urinary Catheter Management: Farah Latex: Cath Placed During This Visit: yes, but has since been removed by the nurse Reason for Continuing Indwelling Catheter: Perioperative Use in Selected Surgeries Urinary Catheter Date of Insertion: 02/12/23 Urinary Catheter Time of Insertion: 10:20 Date Urinary Catheter Removed: 02/13/23 Time Urinary Catheter Discontinued: 02:45 Latex Free: Cath Placed During This Visit: yes, but has since been removed by the nurse Reason for Continuing Indwelling Catheter: Decision to DC Catheter Urinary Catheter Date of Insertion: 02/13/23 Urinary Catheter Time of Insertion: 04:00 Date Urinary Catheter Removed: 02/14/23 Time Urinary Catheter Discontinued: 05:00 Discharge Data Studies Completed and Pending Completed Studies During Hospitalization Category Date Time Status US OB BPP wo NST 87121 Stat Ultrasound 02/11/23 17:39 Completed Radiology Impressions Obstetrics US/Biophysical Profile 02/11/23 17:39 IMPRESSION: Normal biophysical profile score of 8/8. Laboratory Results WBC 23.2 10^3/uL (4.0-10.0) H 02/13/23 14:40 RBC 3.16 10^6/uL (4.1-5.3) L 02/13/23 14:40 Hgb 9.6 g/dL (11.5-15.3) L 02/13/23 14:40 Hct 29.6 % (37.0-47.0) L 02/13/23 14:40 MCV 93.7 fl (81-99) 02/13/23 14:40 MCH 30.4 pg (28.0-34.0) 02/13/23 14:40 MCHC 32.4 g/dL (30.0-36.0) 02/13/23 14:40 RDW 13.3 % (12.1-15.1) 02/13/23 14:40 Plt Count 296 10^3/cmm (130-400) 02/13/23 14:40 MPV 9.9 fL (7.4-10.4) 02/13/23 14:40 Neut % (Auto) 75.0 % 02/11/23 18:50 Lymph % (Auto) 14.0 % 02/11/23 18:50 [place] % (Auto) 7.6 % 02/11/23 18:50 Eos % (Auto) 0.7 % 02/11/23 18:50 Baso % (Auto) 0.3 % 02/11/23 18:50 Neut # (Auto) 11.40 10^3/uL (1.8-7.7) H 02/11/23 18:50 Lymph # (Auto) 2.1 10^3/uL (0.8-4.8) 02/11/23 18:50 [place] # (Auto) 1.2 10^3/uL (0.2-0.9) H 02/11/23 18:50 Eos # (Auto) 0.1 10^3/uL (0.0-0.8) 02/11/23 18:50 Baso # (Auto) 0.0 10^3/uL (0.0-0.1) 02/11/23 18:50 Nucleated RBC % (auto) 0 % 02/11/23 18:50 Nucleated RBCs # 0.0 /100WBC 02/11/23 18:50 Sodium 136 mmol/L (136-145) 02/11/23 18:50 Potassium 3.8 mmol/L (3.5-5.1) 02/11/23 18:50 Chloride 102 mmol/L (98-107) 02/11/23 18:50 Carbon Dioxide 19 mmol/L (22-29) L 02/11/23 18:50 Anion Gap 18.8 (5-19) 02/11/23 18:50 BUN 11 mg/dL (6-20) 02/11/23 18:50 Creatinine 0.4 mg/dL (0.5-0.9) L 02/11/23 18:50 GFR Calculation 179.6 mL/min (90-130) H 02/11/23 18:50 Glucose 74 mg/dL (65-115) 02/11/23 18:50 POC Glucose 133 mg/dL (70-110) H 02/13/23 00:47 Calculated Osmolality 280 mOsm/kg (285-295) L 02/11/23 18:50 Uric Acid 3.9 mg/dL (2.4-5.7) 02/11/23 18:50 Calcium 9.1 mg/dL (8.5-10.5) 02/11/23 18:50 Magnesium 4.5 mg/dL (5.0-7.5) L* 02/13/23 21:50 Total Bilirubin 0.2 mg/dL (0.15-1.2) 02/11/23 18:50 AST 18 U/L (0-32) 02/11/23 18:50 ALT 14 U/L (0-33) 02/11/23 18:50 Alkaline Phosphatase 90 U/L (35-105) 02/11/23 18:50 Total Protein 7.1 g/dL (6.6-8.7) 02/11/23 18:50 Albumin 3.7 g/dL (3.5-5.2) 02/11/23 18:50 Globulin 3.4 g/dL (1.3-4.6) 02/11/23 18:50 Blood Type A Positive 02/11/23 18:50 Rho(D) Type Positive 02/11/23 18:50 Antibody Screen Negative 02/11/23 18:50 Vitals Last Vital Signs Temp 97.0 F L 02/16/23 06:41 Pulse 82 02/16/23 09:40 Resp 18 02/16/23 06:47 BP 145/83 02/16/23 09:40 Pulse Ox 96 02/16/23 06:42 O2 Del Method Room Air 02/16/23 06:47 Discharge Plan Discharge Patient Disposition: Home Condition: Good Prescriptions: New ibuprofen 800 mg Tablet 800 mg PO TID Qty: 60 0RF ferrous sulfate 325 mg (65 mg iron) tablet 325 mg PO BID Qty: 30 0RF Continued labetalol 100 mg tablet 50 mg PO BID Qty: 60 1RF PNV no.154-iron fumarate-folic 27 mg iron- 1 mg tablet 1 tab PO .qd Qty: 30 3RF Discontinued acyclovir 400 mg tablet 400 mg PO TID Qty: 90 1RF doxylamine succinate 25 mg tablet See Rx Instructions .Route .COMPLEX PRN (Reason: nausea) Qty: 30 6RF Rx Instructions: Take 1 tab by mouth each evening and 1/2 tab in the am as needed for nausea PRN; Levemir U-100 Insulin 100 unit/mL solution See Rx Instructions SUBCUT BID Qty: 10 3RF Rx Instructions: Inject 30 units SQ in the am and 30 units in the PM No Action (DME) Brast pump See Rx Instructions .Route .MEDSUPPLY Qty: 1 0RF Rx Instructions: As directed (DME) insulin syringe-needle U-100 [BD Insulin Syringe Ultra-Fine] 1 mL 31 gauge x 5/16 syringe See Rx Instructions .Route Qty: 100 3RF Rx Instructions: As directed - for injection of insulin once a day Discharge Orders: Discharge Order (Routine); Ordered 02/16/23 Ordered By: Chaitanya Welch Referrals: Chaitanya Welch MD [Physician] - 02/18/23 12:30 pm (Please set up a follow up appt with Dr Welch for , 02/18/23.) Discharge Diet: Regular Discharge Activity: Increase activity as tolerated Patient Instructions: Depression (GEN), Bleeding (GEN), Preeclampsia and Eclampsia After Delivery (GEN), Hemorrhage (GEN), OB Discharge Report, OB Food/Drug Interaction Guide, OB Care at Home, Opioid Safety, OB Home Care, OB [facility] - [facility], Abnormal Bleeding Activity Restrictions/Additional Instructions: Please keep your overall activity limited over the next 1 to 3 weeks as your body recovers. Check your blood pressure twice a day and take your labetalol 50 mg twice a day. If your blood pressures are reading over 160 systolic or 110 diastolic, take an extra 50 mg labetalol and decrease activity levels. Nothing per vagina for 6 weeks. Showers are recommended instead of baths for the first 6 weeks. Discharge Attestations Time Spent in Discharge Care*: greater than 30 min Quality Metrics Clinical Quality Measures [ No reported AMI, CVA or VTE this stay] Coding Level of Care Code Acute Code for Chg Fwd Diagnoses Preeclampsia, severe O14.10 Supervision of high risk , unspecified, third trimester O09.93 Gestational diabetes O24.419
== END 2023-02-16 16:45 | disposition home or self-care (01) | DRG 807 ==
LOC: OPOB 05:07 → OBGYN 05:07
PROVIDERS: Admitting Provider Family Medicine; PCP Family Medicine; Visit Provider Family Medicine
DX: O14.14 Severe pre-eclampsia complicating childbirth (principal); Z37.0 Single live birth; Z3A.36 36 weeks gestation of pregnancy; O24.424 Gestational diabetes mellitus in childbirth, insulin controlled; O99.284 Endocrine, nutritional and metabolic diseases complicating childbirth; E28.2 Polycystic ovarian syndrome; O70.1 Second degree perineal laceration during delivery; O71.82 Other specified trauma to perineum and vulva
CPT/HCPCS: 36415; 36416; 51702; 59409; 76819; 80053; 82962; 83735; 84550; 85025; 85027; 86850; 86900; 96372; J1815; J2405; J2795; J3475; J3490; J7040; J7120; J7121

== ENCOUNTER 2023-03-23 12:15 | Day surgery (SDC) | payer BC, MEDICAID, SELFPAY ==
[2023-03-22 14:49] VITALS: BMI 42.0
[2023-03-23] VITALS (13 sets, daily range): BP systolic 116–162; BP diastolic 63–106; PULSE 64–86; RESP 12–19; TEMP 36.2–36.8; O2SAT 93–100
[2023-03-23] MEDS: gabapentin 300 mg Capsule PO (12:42)
[2023-03-23] MEDS: CELEcoxib 200 mg Capsule 400 MG PO (12:42)
[2023-03-23] MEDS: phenazopyridine 100 mg Tablet 200 MG PO (12:42)
[2023-03-23] MEDS: scopolamine 1.5 Patch 1 PATCH TRANSDERMA (12:43)
[2023-03-23] MEDS: acetaminophen 1,000 MG/100 ML PIGGYBACK 400 MG IV (12:46)
[2023-03-23] MEDS: sodium chloride 0.9% 1,000 ML 30 ML IV (12:47)
--- NOTE | 2023-03-23 13:51 | P.ANESASSM_ITS ---
Pre-Anesthetic Assessment Height/Weight: Height 1.63 m Weight 111.13 kg Temp Pulse Resp BP Pulse Ox O2 Del Method 98.2 F 86 16 162/106 95 Room Air 03/23/23 12:31 03/23/23 12:31 03/23/23 12:31 03/23/23 12:31 03/23/23 12:31 03/23/23 12:31 Preop Diagnosis: desires permanent sterilization Operation Date: 03/23/23 14:00 Proposed Procedures p Laparoscopic Salpingectomy:51404,Z30.2(Bilateral) - Mellisa De Santiago MD Familial anesthetic complications: None Was Beta Saurabh taken within 24 hours: N/A Was Clonidine taken within 24 hours: N/A Last intake: Intake Last Liquid Date 03/22/23 Last Liquid Time 23:30 Last Solid Date 03/22/23 Last Solid Time 23:00 Social No alcohol and No tobacco Exam alert, oriented x 3, clear to auscultation bilaterally and regular rate & rhythm Airway Mallampati: Class III Dentition: full Metabolic Diabetes Mellitus and Morbid Obesity Anesthetic Plan ASA status: 3 Anesthesia: General Risk of > 500 ml blood loss (7ml/kg in children): No Medications/Allergies Home Medications Medication Instructions Recorded Confirmed Last Taken Type labetalol 100 mg tablet 50 mg PO BID #60 tabs 02/16/23 03/23/23 03/23/23 Rx vitamins no.154-ferrous 1 tab PO .qd #30 tabs 02/16/23 03/23/23 03/22/23 Rx fumarate 27 mg-folic acid 1 mg tablet Allergies Allergy/AdvReac Type Severity Reaction Status Date / Time No Known Allergies Allergy Verified 03/23/23 12:30 Current Medications Generic Name Dose Route Start Last Admin Trade Name Freq PRN Reason Stop Dose Admin Sodium Chloride 1,000 mls @ 30 mls/hr 03/23/23 12:30 03/23/23 12:47 Sodium Chloride 0.9% IV 03/24/23 12:29 30 mls/hr .Q24H TITO Administration PFSH Anesthesia Medical History Facial swelling Obesity Polycystic ovarian syndrome Type 2 diabetes mellitus Patient with PCOS. Diagnosed with DM in 09/2019. Surgical History Hx of cholecystectomy (08/21/14) Laparoscopic. Performed by Dr. Emerson at [facility] in [place], [place]. Family History Mother Diabetes Father Stroke Grandmother Thyroid disease maternal Female Reproductive History Date of last menstrual period: 07/16/22 Data Anesthesia Cardiac Studies: No Data to Display
--- NOTE | 2023-03-23 14:34 | W.PM.OPSUD ---
Surgery/Procedure H&P Update DATE OF PROCEDURE: March 23, 2023 DATE H&P PERFORMED: 03/18/23 H&P UPDATE INFORMATION: I have reviewed H&P completed within last 30 days, I have examined patient prior to procedure and No changes to prior documentation PREOP DIAGNOSIS: desires permanent sterilization PLANNED PROCEDURE: Operation Date: 03/23/23 14:00 Proposed Procedures p Laparoscopic Salpingectomy:51573,Z30.2(Bilateral) - Mellisa De Santiago MD Related Problem List Diagnoses (1) Morbid obesity with BMI of 40.0-44.9, adult: (2) Sterilization consult:
[2023-03-23] MEDS: ceFAZolin 2,000 MG in sodium chloride 0.9% (plus) 50 ML 100 MG IV (17:24)
--- NOTE | 2023-03-23 18:50 | P.OP_ITS ---
Operative Report Date of procedure: March 23, 2023 Pre-op diagnosis: Preop Diagnosis desires permanent sterilization Post-op diagnosis: same Post-op findings: completed bilateral salpingectomy Procedure done: laparoscopic bilateral salpingectomy Specimens removed/disposition: bilateral fallopian tubes to pathology Surgeon: Mellisa De Santiago Anesthesia: General Estimated blood loss (mL): 2 IV fluids (mL): 800 Urine output (mL): 200 Complications: none Findings: normal appearing uterus, tubes and ovaries Condition: stable Disposition: PACU Procedure: The patient was taken to the operating room where general anesthesia was administered and found to be adequate. She was prepped and draped in the normal sterile fashion in the dorsal lithotomy position in [facility]. A Farah catheter was placed. A weighted speculum was placed into the vagina and the anterior lip of the cervix grasped with a single-tooth tenaculum. A ZUMI uterine manipulator was placed. The gloves were changed and attention was turned to the laparoscopic portion of the case. A 5 mm LUQ incision was made. The veres needle was inserted, but it was too short to insufflate the abdomen. A 5 mm long trocar was inserted, but it was again, not long enough. A 5 mm supraumbilical incision was then made. The 5 mm long trocar was able to be placed using the easy view trocar. Intra-abdominal placement was confirmed and CO2 gas was used to insufflate the abdomen. There was a rather large adhesion of the omentum to the umbilicus. I was able to stear around the adhesion and using direct visualization and illumination of the abdominal wall, two 5 mm incisions were made low and lateral. One on the left and one on the right. The 5mm trochars were then placed under direct visualization. Using the uterine manipulator and the grasper, the fallopian tubes were identified. Using the laparoscopic cautery, the fallopian tube was clamped cauterized and cut. First on the right, then on the left. There was excellent hemostasis post removal of the bilateral tubes. Pictures were taken. Attention was then turned to the omental adhesion. It was removed using the cautery device. All instruments were removed. The abdomen was desufflated. The incisions were closed with 4-0 Vicryl. 10 ml of 1/2% bupivicaine was used around the incisions. The catheter and uterine manipulator were removed. The patient tolerated the procedure well. Sponge lap and needle counts were correct x3. She was taken to the recovery room in stable condition.
--- NOTE | 2023-03-23 19:02 | PM.DCS ---
Discharge Providers Date of Admission: 03/23/23 Date of Discharge: March 23, 2023 Attending Provider at Discharge: Mellisa De Santiago MD Primary Care Provider: Idania Venegas MD Diagnoses at Discharge Discharge Diagnosis (1) Morbid obesity with BMI of 40.0-44.9, adult: Status: Acute (2) Sterilization consult: Status: Acute Reason for Visit Reason for Visit: Z30.2 Hospital Course Hospital Course The patient was admitted for surgery. She did well postoperatively and was ready for discharge Physical Exam Urinary Catheter Management: Farah Latex: Cath Placed During This Visit: yes, but has since been removed by the nurse Urinary Catheter Date of Insertion: 03/23/23 Urinary Catheter Time of Insertion: 17:47 Date Urinary Catheter Removed: 03/23/23 Time Urinary Catheter Discontinued: 18:34 Discharge Data Studies Completed and Pending Pending at discharge Category Date Time Status ORHCG [OR HCG Qualitative Urine] Routine Lab 03/23/23 12:38 Ordered Urine Culture Routine Lab 03/23/23 17:55 Ordered Pathology: Surgical [PTH] Routine Pth 03/23/23 18:34 Ordered Vitals Last Vital Signs Temp 97.2 F L 03/23/23 18:49 Pulse 66 03/23/23 18:55 Resp 15 03/23/23 18:55 BP 116/67 03/23/23 18:55 Pulse Ox 93 03/23/23 18:55 O2 Del Method Room Air 03/23/23 18:55 Discharge Plan Discharge Patient Disposition: Home Condition: Stable Prescriptions: New hydrocodone-acetaminophen 5-325 mg tablet 1 tab PO Q4H Qty: 30 0RF Colace 100 mg capsule 100 mg PO BID Qty: 60 0RF ibuprofen 800 mg tablet 800 mg PO Q8H Qty: 30 0RF Continued labetalol 100 mg tablet 50 mg PO BID Qty: 60 1RF PNV no.154-iron fumarate-folic 27 mg iron- 1 mg tablet 1 tab PO .qd Qty: 30 3RF Discharge Orders: Discharge Order (Routine); Ordered 03/23/23 Ordered By: Mellisa De Santiago Discharge Attestations Time Spent in Discharge Care*: less than 30 min Quality Metrics Clinical Quality Measures [ No reported AMI, CVA or VTE this stay] Coding Level of Care Code Acute Code for Chg Fwd Diagnoses Morbid obesity with BMI of 40.0-44.9, adult E66.01; Z68.41 Sterilization consult Z30.09
[2023-03-23] MEDS: meperidine 50 mg/mL INJ 12.5 MG IVP (19:13)
--- NOTE | 2023-03-23 19:19 | PC.NURSE ---
1914- per dr De Santiago verbal order for 5, 5-325 hydrocodone be dispersed for overnight pain control as patients pharmacy was closed. Spoke with Musa in pharmacy
[2023-03-23] MEDS: HYDROcodone-acetaminophen 5-325 mg Tablet 5 TAB PO (19:46)
[2023-03-23] MEDS: ibuprofen 800 mg tablet PO (19:46)
--- NOTE | 2023-03-23 20:00 | ANE.PACU2 ---
Inpatient post-anesthesia follow up: Airway intact: Yes Vital signs: Temperature 97.2 F Pulse Rate 66 Respiratory Rate 18 Blood Pressure 138/98 Pulse Oximetry 98 Oxygen Delivery Me thod Room Air Oxygen Flow Rate Fraction of Inspir ed Oxygen Hydration adequate: Yes Nausea and vomiting: No Pain level: 1 Mental status: Baseline
[2023-03-23 21:56] LABS: OR HCG Qualitative Urine Negative (Negative)
== END 2023-03-23 20:15 | disposition home or self-care (01) ==
PROVIDERS: Anesthesiology; PCP Family Medicine; Visit Provider Obstetrics & Gynecology
PROC: (CPT 58661; principal; 2023-03-23 13:50)
DX: Z30.2 Encounter for sterilization (principal); E11.9 Type 2 diabetes mellitus without complications; E66.01 Morbid (severe) obesity due to excess calories; Z68.41 Body mass index [BMI] 40.0-44.9, adult; E28.2 Polycystic ovarian syndrome
CPT/HCPCS: 58661; 84703; 87086; 88302; J0131; J0690; J1100; J1200; J1885; J2175; J2250; J2405; J2704; J2710; J3010; J3490; J7030

== ENCOUNTER → 2023-04-08 10:36 | Outpatient (BNVA) | payer BC, MEDICAID, SELFPAY | PROVIDERS: PCP Family Medicine; Visit Provider Family Medicine | DX: O24.419 Gestational diabetes mellitus in pregnancy, unspecified control (principal) | CPT/HCPCS: 82951 ==

== ENCOUNTER → 2023-10-07 12:22 | Outpatient (BNVA) | payer BC, SELFPAY | PROVIDERS: PCP Family Medicine; Visit Provider Family Medicine | DX: E11.9 Type 2 diabetes mellitus without complications (principal); E03.9 Hypothyroidism, unspecified | CPT/HCPCS: 83036; 84439; 84443 ==